=== PATIENT | female | born 1955 | race Caucasian/White ===

== ENCOUNTER 2025-03-05 12:18 | Inpatient (IN) | payer MEDICARE, OTHER ==
[~2025-03-05] VITALS: Ht 165.1 cm; Wt 82.1 kg
[2025-03-05] MEDS ORDERED: SERT-440 PO (12:37)
[2025-03-05] MEDS ORDERED: VALS320T16 PO (12:37)
[2025-03-05] MEDS ORDERED: NIFE-35 PO (12:37)
[2025-03-05] MEDS ORDERED: FAMO20TA8 PO (12:37)
[2025-03-05 12:58] LABS: CALCIUM 8.5 mg/dL (8.5-10.1); CARBON DIOXIDE 15 mmol/L (21-32); CHLORIDE 99 mmol/L (98-107); CREATININE 1.6 mg/dL (0.6-1.3); GLUCOSE 124 mg/dL (74-106); POTASSIUM 3.6 mmol/L (3.5-5.1); SODIUM SERUM 131 mmol/L (136-145); UREA NITROGEN, BLOOD 62 mg/dL (7-18)
[2025-03-05 13:03] LABS: BASOPHILS % (AUTO) 0.6 % (0.0-2.0); EOSINOPHILS % (AUTO) 0.1 % (0.0-7.0); LYMPHOCYTES # (AUTO) 0.4 K/uL (0.8-4.8); MEAN CORPUSCULAR HEMOGLOBIN 30.9 uug (24.7-32.8); MONOCYTES # (AUTO) 0.2 K/uL (0.1-1.30); NEUTROPHILS # (AUTO) 2.5 K/uL (1.8-8.9); WHITE BLOOD COUNT (AUTO) 3.1 K/uL (3.8-11.8)
[2025-03-05 13:05] LABS: LYMPHOCYTES % (AUTO) 11.9 % (20.5-51.5); MEAN CORPUSCULAR HGB CONC 34 g/dL (32.3-35.6); MEAN CORPUSCULAR VOLUME 91.1 fL (75.5-95.3); MONOCYTES % (AUTO) 6.8 % (0.0-11.0); NEUTROPHILS % (AUTO) 80.6 % (38.5-71.5); PLATELET COUNT (AUTO) 222 K/uL (179-408); RED CELL DISTRIBUTION WIDTH 16.1 % (12.3-17.7)
[2025-03-05 13:06] LABS: DIFFERENTIAL COMMENT 1; RED BLOOD CELL COUNT(AUTO) 2.19 MIL/uL (3.63-4.92)
[2025-03-05 13:08] LABS: HEMATOCRIT 19.9 % (31.2-41.9); HEMOGLOBIN 6.8 g/dL (10.9-14.3)
[2025-03-05 13:10] LABS: ALANINE AMINOTRANSFERASE 11 U/L (14-59); ALBUMIN 2.8 g/dL (3.4-5.0); ALKALINE PHOSPHATASE 124 U/L (50-136); ASPARTATE AMINOTRANSFERASE 18 U/L (15-37); BILIRUBIN,DIRECT 0.3 mg/dL (0.0-0.2); BILIRUBIN,TOTAL 0.7 mg/dL (0.2-1.0); NT-PRO BNP 445 pg/mL (0-125); TOTAL PROTEIN, SERUM 6.7 g/dL (6.4-8.2)
[2025-03-05 13:17] LABS: LYMPHOCYTES % (MANUAL) 12 % (20-40); MONOCYTES % (MANUAL) 7 % (2-10); NEUTROPHILS % (MANUAL) 81 % (42-75); PLATELET ESTIMATE ADEQUATE
[2025-03-05 13:18] LABS: ANISOCYTOSIS 1+
[2025-03-05] MEDS: IV NORMAL SALINE 1000 ML BAG IV ONE (13:20)
[2025-03-05] MEDS ORDERED: LIDOCAINE/PRILOCAINE 5 GM CREAM.GM. ONE (13:27)
[2025-03-05 13:29] LABS: IRON, SERUM 27 ug/dL (50-175)
[2025-03-05] MEDS ORDERED: LIDOCAINE/PRILOCAINE 5 GM CREAM.GM. TP ONE (13:30)
[2025-03-05] MEDS ORDERED: CEFTRIAXONE /D5W 50ML IVPB **ER PYXIS IV ONE (14:47)
[2025-03-05] MEDS ORDERED: METRONIDAZOLE 500 MG/NS 100ML 100 ML IV ONE (14:48)
[2025-03-05] MEDS: CEFTRIAXONE 1 G in IV DEXTROSE 5% 50 ML IV ONE (14:48)
[2025-03-05] MEDS: METRONIDAZOLE 500 MG/NS 100ML 100 ML IV ONE (14:48)
[2025-03-05 15:24] LABS: *OCCULT BLOOD STOOL NEGATIVE (NEGATIVE)
[2025-03-05 17:17] LABS: *BILIRUBIN,URIN NEGATIVE (NEGATIVE); *CLARITY,URINE CLEAR (CLEAR); *COLOR,URINE YELLOW (YELLOW); *KETONES,URINE TRACE (NEGATIVE); *PROTEIN,URINE 1+ (NEGATIVE); *UROBILINOGEN,URINE 0.2 E.U./dl (NORMAL); LEUKOCYTE ESTERASE ,URINE 1+ (NEGATIVE); NITRITE, URINE POSITIVE (NEGATIVE); PH,URINE 5.5 (5.0-8.0); UGLUCOSE NEGATIVE (NEGATIVE)
[2025-03-05 17:18] LABS: *BLOOD, URINE TRACE (NEGATIVE)
[2025-03-05 17:33] LABS: BACTERIA,URINE MANY /HPF (NONE SEEN); RBC,URINE 0-3 /HPF (0-3); SQUAMOUS EPITHELIAL CELL,UR FEW /HPF (NONE SEEN); WBC,URINE 20-50 /HPF (0-3)
[2025-03-05 19:00] VITALS: BP 126/50; TEMP 98.1; O2SAT 100
[2025-03-05] MEDS ORDERED: ONDANSETRON 4 MG/2 ML VIAL IV PRN (19:00)
[2025-03-05] MEDS ORDERED: ACETAMINOPHEN 325 MG TABLET PO PRN (19:00)
[2025-03-05] MEDS ORDERED: MAGNESIUM HYDROXIDE 30 ML LIQUID UDC PO PRN (19:00)
[2025-03-05] MEDS ORDERED: ATOR40TA PO (19:39)
[2025-03-05] MEDS ORDERED: HYDR-3980 (19:39)
[2025-03-05] MEDS ORDERED: CLON1TAB12 PO (19:39)
[2025-03-05] MEDS: VANCOMYCIN HCL 250 MG CAPSULE PO SCH (22:00)
[2025-03-05 22:57] VITALS: BP 122/53; TEMP 97.7
[2025-03-05] MEDS: IV 1/2NS 1000 ML 1,000 ML IV PRN (23:14)
[2025-03-05 23:15] VITALS: BP 128/65; TEMP 98
[2025-03-05 23:30] VITALS: BP 116/64; TEMP 98.2
[2025-03-06] VITALS (10 sets, daily range): BP systolic 109–131; BP diastolic 41–62; TEMP 97.8–98.6; O2SAT 93–97
[2025-03-06] MEDS: CLONAZEPAM 1 MG TABLET PO ONE (01:15)
[2025-03-06] MEDS: PANTOPRAZOLE SODIUM 40 MG TABLET.DR PO SCH (06:28)
[2025-03-06 07:00] LABS: BASOPHILS % (AUTO) 0.9 % (0.0-2.0); EOSINOPHILS % (AUTO) 1.1 % (0.0-7.0); HEMATOCRIT 27.6 % (31.2-41.9); HEMOGLOBIN 9.2 g/dL (10.9-14.3); LYMPHOCYTES # (AUTO) 0.4 K/uL (0.8-4.8); LYMPHOCYTES % (AUTO) 21.7 % (20.5-51.5); MEAN CORPUSCULAR HEMOGLOBIN 30.4 uug (24.7-32.8); MEAN CORPUSCULAR HGB CONC 33 g/dL (32.3-35.6); MEAN CORPUSCULAR VOLUME 91.5 fL (75.5-95.3); MONOCYTES # (AUTO) 0.1 K/uL (0.1-1.30); MONOCYTES % (AUTO) 7.7 % (0.0-11.0); NEUTROPHILS # (AUTO) 1.1 K/uL (1.8-8.9); NEUTROPHILS % (AUTO) 68.6 % (38.5-71.5); PLATELET COUNT (AUTO) 149 K/uL (179-408); RED BLOOD CELL COUNT(AUTO) 3.02 MIL/uL (3.63-4.92); RED CELL DISTRIBUTION WIDTH 17.1 % (12.3-17.7)
[2025-03-06 07:17] LABS: CALCIUM 7.4 mg/dL (8.5-10.1); CREATININE 0.9 mg/dL (0.6-1.3); MAGNESIUM 1.7 mg/dL (1.8-2.4); PHOSPHOROUS 2.9 mg/dL (2.5-4.9); POTASSIUM 3.3 mmol/L (3.5-5.1)
[2025-03-06 07:18] LABS: DIFFERENTIAL COMMENT 1; WHITE BLOOD COUNT (AUTO) 1.6 K/uL (3.8-11.8)
[2025-03-06 08:21] LABS: THYROID STIMULATING HORMONE 6.374 mIU/mL (0.358-3.740)
[2025-03-06 08:53] LABS: EOSINOPHILS % (MANUAL) 1 % (0-8); LYMPHOCYTES % (MANUAL) 22 % (20-40); MONOCYTES % (MANUAL) 8 % (2-10); NEUTROPHILS % (MANUAL) 69 % (42-75)
[2025-03-06] MEDS: CEFTRIAXONE 1 G in IV DEXTROSE 5% 50 ML IV SCH (09:32)
[2025-03-06] MEDS ORDERED: CLONAZEPAM 1 MG TABLET PO PRN (11:30)
[2025-03-06] MEDS ORDERED: IOHEXOL 350 100 ML INFUS..BTL ONE (11:49)
[2025-03-06] MEDS ORDERED: SWABABLE VALVE TRANSFER SET EA MC ONE (11:49)
[2025-03-06] MEDS ORDERED: IV NORMAL SALINE 250 ML IV ONE (11:49)
[2025-03-06] MEDS: POTASSIUM CHLORIDE 20 MEQ POWDER PACKET PO ONE (13:31)
[2025-03-06] MEDS: MAGNESIUM OXIDE 400 MG TABLET PO ONE (13:31)
[2025-03-06] MEDS: NIFEdipine XL 30 MG TABSR PO SCH (17:00)
[2025-03-06] MEDS: SERTRALINE HCL 100 MG TABLET PO SCH (17:06)
[2025-03-06] MEDS: CLOTRIMAZOLE 1% CREAM 30 GM TUBE TOP SCH (17:07)
[2025-03-06] MEDS ORDERED: LOPE2CAP40 PO (17:19)
[2025-03-06] MEDS ORDERED: CHOL10005 PO (17:19)
[2025-03-06] MEDS ORDERED: IMMU10VI8 IV (17:22)
[2025-03-06 18:51] LABS: *RHEUMATOID FACTOR SCREEN NEGATIVE (NEGATIVE)
[2025-03-06 19:05] LABS: HIV-1 p24 ANTIGEN NON REACTIVE (NONREACTIVE); HIV-1/2 ANTIBODY NON REACTIVE (NONREACTIVE)
[2025-03-06] MEDS: REMEDY ESSENTIAL ZINC PASTE 113 GM TP PRN (21:16)
[2025-03-06] MEDS: ATORVASTATIN 40 MG TABLET PO SCH (21:16)
[2025-03-06] MEDS: CLONAZEPAM 1 MG TABLET PO PRN (21:23)
[2025-03-07] VITALS (10 sets, daily range): BP systolic 122–144; BP diastolic 56–72; TEMP 97.5–98.8; O2SAT 93–98
[2025-03-07 00:54] LABS: THYROID STIMULATING HORMONE 6.11 mIU/mL (0.358-3.740)
[2025-03-07 06:43] LABS: BASOPHILS % (AUTO) 0.9 % (0.0-2.0); DIFFERENTIAL COMMENT 0; EOSINOPHILS % (AUTO) 1.9 % (0.0-7.0); LYMPHOCYTES # (AUTO) 0.6 K/uL (0.8-4.8); MEAN CORPUSCULAR HEMOGLOBIN 30.1 uug (24.7-32.8); MEAN CORPUSCULAR HGB CONC 34 g/dL (32.3-35.6); MEAN CORPUSCULAR VOLUME 89.8 fL (75.5-95.3); MONOCYTES # (AUTO) 0.1 K/uL (0.1-1.30); NEUTROPHILS % (AUTO) 54.2 % (38.5-71.5); PLATELET COUNT (AUTO) 170 K/uL (179-408); RED CELL DISTRIBUTION WIDTH 17.2 % (12.3-17.7)
[2025-03-07 06:57] LABS: HEMATOCRIT 20.2 % (31.2-41.9); HEMOGLOBIN 6.8 g/dL (10.9-14.3); RED BLOOD CELL COUNT(AUTO) 2.25 MIL/uL (3.63-4.92); WHITE BLOOD COUNT (AUTO) 1.8 K/uL (3.8-11.8)
[2025-03-07] MEDS: SERTRALINE HCL 100 MG TABLET PO SCH (08:43)
[2025-03-07] MEDS: VALSARTAN 160 MG TABLET PO SCH (09:00)
[2025-03-07 11:04] LABS: *OCCULT BLOOD STOOL NEGATIVE (NEGATIVE)
[2025-03-07] MEDS ORDERED: IV NORMAL SALINE 250 ML IV ONE (14:35)
[2025-03-07] MEDS ORDERED: SWABABLE VALVE TRANSFER SET EA MC ONE (14:35)
[2025-03-07] MEDS ORDERED: IOHEXOL 350 100 ML INFUS..BTL ONE (14:35)
[2025-03-07] MEDS: SOD FERRIC GLUC COMPLX/SUCROSE 125 MG in IV NORMAL SALINE 100 ML IV SCH (15:16)
[2025-03-07 16:12] LABS: BAND % (MANUAL) 5 % (0-10); EOSINOPHILS % (MANUAL) 2 % (0-8); LYMPHOCYTES % (MANUAL) 39 % (20-40); MONOCYTES % (MANUAL) 9 % (2-10); NEUTROPHILS % (MANUAL) 45 % (42-75)
[2025-03-07 16:13] LABS: ANISOCYTOSIS 1+; PLATELET ESTIMATE DECREASED
[2025-03-08 00:29] VITALS: BP 127/52; TEMP 98.2; O2SAT 96
[2025-03-08 04:07] LABS: HEPATITIS B CORE AB, TOTAL Negative (Negative); HEPATITIS B SURFACE AB, QUAL Reactive (.); HEPATITIS B SURFACE AG Negative (Negative); HEPATITIS C VIRUS ANTIBODY Non Reactive (Non Reactive)
[2025-03-08 04:42] VITALS: BP 141/60; TEMP 98.1; O2SAT 93
[2025-03-08 06:10] LABS: *IMMUNOGLOBULIN G, SERUM 700 mg/dL (586-1602); IMMUNOGLOBULIN A, SERUM 239 mg/dL (87-352); IMMUNOGLOBULIN M, SERUM 233 mg/dL (26-217)
[2025-03-08 07:07] LABS: FOLATE (FOLIC ACID), SERUM <2.0 ng/mL (>3.0)
[2025-03-08 07:09] LABS: EOSINOPHILS % (AUTO) 2.7 % (0.0-7.0); HEMATOCRIT 24.2 % (31.2-41.9); HEMOGLOBIN 8.1 g/dL (10.9-14.3); LYMPHOCYTES # (AUTO) 0.4 K/uL (0.8-4.8); LYMPHOCYTES % (AUTO) 27.3 % (20.5-51.5); MEAN CORPUSCULAR HGB CONC 34 g/dL (32.3-35.6); MEAN CORPUSCULAR VOLUME 89.4 fL (75.5-95.3); MONOCYTES # (AUTO) 0.1 K/uL (0.1-1.30); MONOCYTES % (AUTO) 7.7 % (0.0-11.0); NEUTROPHILS # (AUTO) 0.9 K/uL (1.8-8.9); NEUTROPHILS % (AUTO) 61.3 % (38.5-71.5); PLATELET COUNT (AUTO) 158 K/uL (179-408); RED BLOOD CELL COUNT(AUTO) 2.71 MIL/uL (3.63-4.92); RED CELL DISTRIBUTION WIDTH 16.8 % (12.3-17.7)
[2025-03-08 07:25] LABS: CALCIUM 7.8 mg/dL (8.5-10.1); CREATININE 0.8 mg/dL (0.6-1.3); POTASSIUM 3.3 mmol/L (3.5-5.1)
[2025-03-08 07:30] LABS: ALANINE AMINOTRANSFERASE < 6 U/L (14-59); ALBUMIN 2.2 g/dL (3.4-5.0); ALKALINE PHOSPHATASE 102 U/L (50-136); ASPARTATE AMINOTRANSFERASE 19 U/L (15-37); BILIRUBIN,DIRECT 0.2 mg/dL (0.0-0.2); BILIRUBIN,TOTAL 0.5 mg/dL (0.2-1.0); TOTAL PROTEIN, SERUM 5.5 g/dL (6.4-8.2)
[2025-03-08 07:37] VITALS: BP 110/51; TEMP 97.7; O2SAT 95
[2025-03-08 07:40] LABS: DIFFERENTIAL COMMENT 1; WHITE BLOOD COUNT (AUTO) 1.4 K/uL (3.8-11.8)
[2025-03-08] MEDS: POTASSIUM CHLORIDE 20 MEQ TAB.PRT.SR PO ONE (09:41)
[2025-03-08 11:45] VITALS: BP 117/43; TEMP 98.6; O2SAT 100
[2025-03-08] MEDS: FOLIC ACID 1 MG TABLET PO SCH (13:56)
[2025-03-08 13:59] VITALS: BP 118/66; TEMP 98.1; O2SAT 95
[2025-03-08] MEDS: TBO-FILGRASTIM 480 MCG/0.8 ML SYRINGE SQ SCH (17:15)
[2025-03-08] MEDS ORDERED: FILGRASTIM 480 MCG/1.6 ML VIAL SUBCUT SCH (18:00)
[2025-03-08] MEDS: ACIDOPHILUS/BULGARICUS CHEW TAB PO SCH (20:22)
[2025-03-08 20:49] VITALS: BP 124/59; TEMP 97.2; O2SAT 98
[2025-03-09 00:09] VITALS: BP 119/50; TEMP 98.2; O2SAT 98
[2025-03-09 04:29] VITALS: BP 130/61; TEMP 98.3; O2SAT 97
[2025-03-09 07:34] LABS: BASOPHILS % (AUTO) 0.4 % (0.0-2.0); EOSINOPHILS % (AUTO) 0.5 % (0.0-7.0); HEMATOCRIT 24.1 % (31.2-41.9); HEMOGLOBIN 8.2 g/dL (10.9-14.3); LYMPHOCYTES # (AUTO) 0.5 K/uL (0.8-4.8); LYMPHOCYTES % (AUTO) 10.3 % (20.5-51.5); MEAN CORPUSCULAR HEMOGLOBIN 30.1 uug (24.7-32.8); MEAN CORPUSCULAR HGB CONC 34 g/dL (32.3-35.6); MEAN CORPUSCULAR VOLUME 88.8 fL (75.5-95.3); MONOCYTES # (AUTO) 0.2 K/uL (0.1-1.30); MONOCYTES % (AUTO) 3.3 % (0.0-11.0); NEUTROPHILS # (AUTO) 4.2 K/uL (1.8-8.9); NEUTROPHILS % (AUTO) 85.5 % (38.5-71.5); PLATELET COUNT (AUTO) 147 K/uL (179-408); RED BLOOD CELL COUNT(AUTO) 2.71 MIL/uL (3.63-4.92); RED CELL DISTRIBUTION WIDTH 16.6 % (12.3-17.7)
[2025-03-09 07:37] LABS: DIFFERENTIAL COMMENT 1
[2025-03-09 07:40] LABS: CALCIUM 7.5 mg/dL (8.5-10.1); CREATININE 0.8 mg/dL (0.6-1.3); POTASSIUM 3.4 mmol/L (3.5-5.1)
[2025-03-09 07:56] VITALS: BP 121/60; TEMP 98.3; O2SAT 97
[2025-03-09] MEDS: POTASSIUM CHLORIDE 20 MEQ TAB.PRT.SR PO ONE (09:47)
[2025-03-09 11:39] VITALS: BP 123/61; TEMP 98.2; O2SAT 97
[2025-03-09 14:07] LABS: *ANTI-SCLERODERMA-70 AB <0.2 AI (0.0-0.9); *RNP ANTIBODIES <0.2 AI (0.0-0.9); *SJOGREN'S ANTI-SS-A <0.2 AI (0.0-0.9); *SJOGREN'S ANTI-SS-B <0.2 AI (0.0-0.9); *SMITH ANTIBODIES <0.2 AI (0.0-0.9); ANTI-DNA(DS) AB, QN <1 IU/mL (0-9); ANTI-NUCLEAR AB DIRECT Negative (Negative)
[2025-03-09 16:49] VITALS: BP 121/52; TEMP 98.7; O2SAT 96
[2025-03-09] MEDS: ENSURE ENLIVE (VAN) 240 ML LIQUID PO SCH (17:03)
[2025-03-09 19:47] VITALS: BP 137/54; TEMP 99.1; O2SAT 96
[2025-03-10 00:09] VITALS: BP 118/49; TEMP 97.7; O2SAT 98
[2025-03-10 04:35] VITALS: BP 139/59; TEMP 97.8; O2SAT 95
[2025-03-10] MEDS ORDERED: VANCOMYCIN HCL 250 MG CAPSULE PO SCH ×4 (06:00→08:00)
[2025-03-10 07:19] LABS: BASOPHILS % (AUTO) 0.5 % (0.0-2.0); EOSINOPHILS % (AUTO) 0.6 % (0.0-7.0); HEMATOCRIT 22.2 % (31.2-41.9); HEMOGLOBIN 7.5 g/dL (10.9-14.3); LYMPHOCYTES # (AUTO) 0.5 K/uL (0.8-4.8); LYMPHOCYTES % (AUTO) 8.7 % (20.5-51.5); MEAN CORPUSCULAR HEMOGLOBIN 30.6 uug (24.7-32.8); MEAN CORPUSCULAR HGB CONC 34 g/dL (32.3-35.6); MEAN CORPUSCULAR VOLUME 89.9 fL (75.5-95.3); MONOCYTES # (AUTO) 0.2 K/uL (0.1-1.30); NEUTROPHILS # (AUTO) 4.8 K/uL (1.8-8.9); NEUTROPHILS % (AUTO) 86.2 % (38.5-71.5); PLATELET COUNT (AUTO) 132 K/uL (179-408); RED CELL DISTRIBUTION WIDTH 16.4 % (12.3-17.7); WHITE BLOOD COUNT (AUTO) 5.6 K/uL (3.8-11.8)
[2025-03-10 07:27] LABS: CREATININE 0.8 mg/dL (0.6-1.3); POTASSIUM 3.8 mmol/L (3.5-5.1)
[2025-03-10 07:43] VITALS: BP 135/67; TEMP 97.7; O2SAT 97
[2025-03-10 07:43] LABS: DIFFERENTIAL COMMENT 1; RED BLOOD CELL COUNT(AUTO) 2.47 MIL/uL (3.63-4.92)
[2025-03-10] MEDS: VANCOMYCIN HCL 250 MG CAPSULE PO SCH (08:14)
[2025-03-10 11:54] VITALS: BP 130/53; TEMP 97.6; O2SAT 99
[2025-03-10 16:34] VITALS: BP 130/59; TEMP 97.7; O2SAT 98
[2025-03-10] MEDS: HYDROCODONE/APAP 5-325MG TABLET PO PRN (16:37)
[2025-03-10 19:00] VITALS: BP 121/55; TEMP 98.4; O2SAT 97
[2025-03-10] MEDS: AMOXICILLIN-CLAVUL 875-125MG TABLET PO SCH (22:25)
[2025-03-11 02:09] LABS: A/G RATIO 0.8 (0.7-1.7); ALBUMIN 2.4 g/dL (2.9-4.4); ALPHA-1-GLOBULIN 0.4 g/dL (0.0-0.4); ALPHA-2-GLOBULIN 0.7 g/dL (0.4-1.0); BETA GLOBULIN 0.9 g/dL (0.7-1.3); GAMMA GLOBULIN 0.9 g/dL (0.4-1.8); GLOBULIN, TOTAL 2.9 g/dL (2.2-3.9); M-SPIKE Not Observed g/dL (Not Observed); PROTEIN, TOTAL 5.3 g/dL (6.0-8.5)
[2025-03-11 06:13] VITALS: BP 124/52; TEMP 98.3; O2SAT 96
[2025-03-11 11:48] VITALS: BP 125/54; TEMP 98.1; O2SAT 96
[2025-03-11] MEDS: ACIDOPHILUS/BULGARICUS CHEW TAB PO SCH ×2 (12:21→16:32)
[2025-03-11 16:23] VITALS: BP 137/55; TEMP 97.8; O2SAT 99
[2025-03-11 20:22] VITALS: BP 118/54; TEMP 98.8; O2SAT 96
[2025-03-12 04:59] VITALS: BP 115/54; TEMP 98; O2SAT 96
[2025-03-12 07:20] LABS: BASOPHILS % (AUTO) 0.4 % (0.0-2.0); EOSINOPHILS # (AUTO) 0.1 K/uL (0.0-0.7); HEMATOCRIT 22.3 % (31.2-41.9); HEMOGLOBIN 7.5 g/dL (10.9-14.3); LYMPHOCYTES # (AUTO) 0.7 K/uL (0.8-4.8); LYMPHOCYTES % (AUTO) 24.6 % (20.5-51.5); MEAN CORPUSCULAR HEMOGLOBIN 30.3 uug (24.7-32.8); MEAN CORPUSCULAR HGB CONC 34 g/dL (32.3-35.6); MEAN CORPUSCULAR VOLUME 90.2 fL (75.5-95.3); MONOCYTES # (AUTO) 0.2 K/uL (0.1-1.30); MONOCYTES % (AUTO) 6.2 % (0.0-11.0); NEUTROPHILS # (AUTO) 1.8 K/uL (1.8-8.9); NEUTROPHILS % (AUTO) 66.8 % (38.5-71.5); PLATELET COUNT (AUTO) 119 K/uL (179-408); RED CELL DISTRIBUTION WIDTH 17.6 % (12.3-17.7); WHITE BLOOD COUNT (AUTO) 2.7 K/uL (3.8-11.8)
[2025-03-12 07:29] LABS: CALCIUM 7.9 mg/dL (8.5-10.1); CREATININE 0.7 mg/dL (0.6-1.3); POTASSIUM 3.7 mmol/L (3.5-5.1)
[2025-03-12 07:34] LABS: RED BLOOD CELL COUNT(AUTO) 2.47 MIL/uL (3.63-4.92)
[2025-03-12 07:35] LABS: DIFFERENTIAL COMMENT 1
[2025-03-12 08:31] LABS: LYMPHOCYTES % (MANUAL) 0 % (20-40); NEUTROPHILS % (MANUAL) 0 % (42-75)
[2025-03-12 12:00] VITALS: TEMP 98.2
[2025-03-12 19:00] VITALS: BP 111/50; TEMP 98; O2SAT 97
[2025-03-12] MEDS: VANCOMYCIN HCL 250 MG CAPSULE PO SCH (20:53)
[2025-03-12] MEDS: ENSURE ENLIVE (VAN) 240 ML LIQUID PO SCH (21:07)
[2025-03-13 05:00] VITALS: BP 113/53; TEMP 98.2; O2SAT 97
[2025-03-13 08:56] LABS: BASOPHILS % (AUTO) 0.6 % (0.0-2.0); DIFFERENTIAL COMMENT 0; EOSINOPHILS % (AUTO) 1.8 % (0.0-7.0); HEMATOCRIT 22.7 % (31.2-41.9); HEMOGLOBIN 7.5 g/dL (10.9-14.3); LYMPHOCYTES # (AUTO) 0.8 K/uL (0.8-4.8); LYMPHOCYTES % (AUTO) 39.6 % (20.5-51.5); MEAN CORPUSCULAR HEMOGLOBIN 30.4 uug (24.7-32.8); MEAN CORPUSCULAR HGB CONC 33 g/dL (32.3-35.6); MEAN CORPUSCULAR VOLUME 92.2 fL (75.5-95.3); MONOCYTES # (AUTO) 0.2 K/uL (0.1-1.30); MONOCYTES % (AUTO) 9.8 % (0.0-11.0); NEUTROPHILS % (AUTO) 48.2 % (38.5-71.5); PLATELET COUNT (AUTO) 113 K/uL (179-408); RED CELL DISTRIBUTION WIDTH 17.4 % (12.3-17.7)
[2025-03-13 08:57] LABS: CALCIUM 8.4 mg/dL (8.5-10.1); CREATININE 0.8 mg/dL (0.6-1.3); POTASSIUM 3.8 mmol/L (3.5-5.1)
[2025-03-13 08:59] LABS: RED BLOOD CELL COUNT(AUTO) 2.47 MIL/uL (3.63-4.92)
[2025-03-13 09:48] LABS: IRON, SERUM 48 ug/dL (50-175)
[2025-03-13 10:02] LABS: FERRITIN 828 ng/mL (8-252)
[2025-03-13 11:34] VITALS: BP 125/55; TEMP 98.1; O2SAT 98
[2025-03-13] MEDS ORDERED: ALBUTEROL SULFATE 1.25 MG/3 ML NEBU NEB PRN (12:00)
[2025-03-13] MEDS ORDERED: IPRATROPIUM BROMIDE 0.5 MG/2.5 ML NEBU NEB PRN (12:00)
[2025-03-13 15:45] VITALS: BP 123/67; TEMP 98.7; O2SAT 96
[2025-03-13 19:47] VITALS: BP 113/60; TEMP 98.1; O2SAT 95
[2025-03-14 05:10] VITALS: BP 113/55; TEMP 98.1; O2SAT 96
[2025-03-14 06:22] LABS: EOSINOPHILS % (AUTO) 2.1 % (0.0-7.0); HEMATOCRIT 22.3 % (31.2-41.9); LYMPHOCYTES # (AUTO) 0.7 K/uL (0.8-4.8); LYMPHOCYTES % (AUTO) 44.5 % (20.5-51.5); MEAN CORPUSCULAR HEMOGLOBIN 30.7 uug (24.7-32.8); MEAN CORPUSCULAR HGB CONC 33 g/dL (32.3-35.6); MEAN CORPUSCULAR VOLUME 92.7 fL (75.5-95.3); MONOCYTES # (AUTO) 0.2 K/uL (0.1-1.30); MONOCYTES % (AUTO) 15.9 % (0.0-11.0); NEUTROPHILS # (AUTO) 0.5 K/uL (1.8-8.9); NEUTROPHILS % (AUTO) 36.5 % (38.5-71.5); PLATELET COUNT (AUTO) 118 K/uL (179-408); RED CELL DISTRIBUTION WIDTH 17.9 % (12.3-17.7)
[2025-03-14 06:35] LABS: CALCIUM 7.8 mg/dL (8.5-10.1); CREATININE 0.7 mg/dL (0.6-1.3); POTASSIUM 3.5 mmol/L (3.5-5.1)
[2025-03-14 06:48] LABS: DIFFERENTIAL COMMENT 1; HEMOGLOBIN 7.4 g/dL (10.9-14.3); WHITE BLOOD COUNT (AUTO) 1.5 K/uL (3.8-11.8)
[2025-03-14] MEDS ORDERED: FILGRASTIM 480 MCG/1.6 ML VIAL SUBCUT SCH (10:00)
[2025-03-14] MEDS: TBO-FILGRASTIM 480 MCG/0.8 ML SYRINGE SQ SCH (10:54)
[2025-03-14 11:10] VITALS: BP 108/52; TEMP 98.1; O2SAT 98
[2025-03-14 12:57] LABS: LYMPHOCYTES % (MANUAL) 0 % (20-40); NEUTROPHILS % (MANUAL) 0 % (42-75)
[2025-03-14] MEDS: SUCRALFATE 1 G TABLET PO SCH (13:48)
[2025-03-14] MEDS: ALTEPLASE 2 MG VIAL XX ONE (14:42)
[2025-03-14 15:40] VITALS: BP 112/49; TEMP 98; O2SAT 96
[2025-03-14 19:00] VITALS: BP 108/47; TEMP 98.2; O2SAT 97
[2025-03-15 06:00] VITALS: BP 106/41; TEMP 98.2; O2SAT 95
[2025-03-15 06:58] LABS: CREATININE 0.5 mg/dL (0.6-1.3); PHOSPHOROUS 1.5 mg/dL (2.5-4.9); POTASSIUM 2.8 mmol/L (3.5-5.1)
[2025-03-15 07:05] LABS: BASOPHILS # (AUTO) 0.1 K/UL (0.0-0.2); BASOPHILS % (AUTO) 0.9 % (0.0-2.0); DIFFERENTIAL COMMENT 0; EOSINOPHILS # (AUTO) 0.1 K/uL (0.0-0.7); EOSINOPHILS % (AUTO) 0.9 % (0.0-7.0); HEMATOCRIT 21.5 % (31.2-41.9); LYMPHOCYTES # (AUTO) 1.1 K/uL (0.8-4.8); LYMPHOCYTES % (AUTO) 15.7 % (20.5-51.5); MEAN CORPUSCULAR HEMOGLOBIN 30.8 uug (24.7-32.8); MEAN CORPUSCULAR HGB CONC 33 g/dL (32.3-35.6); MEAN CORPUSCULAR VOLUME 93.6 fL (75.5-95.3); MONOCYTES # (AUTO) 0.3 K/uL (0.1-1.30); MONOCYTES % (AUTO) 3.9 % (0.0-11.0); NEUTROPHILS # (AUTO) 5.7 K/uL (1.8-8.9); NEUTROPHILS % (AUTO) 78.6 % (38.5-71.5); PLATELET COUNT (AUTO) 123 K/uL (179-408); RED CELL DISTRIBUTION WIDTH 19.5 % (12.3-17.7); WHITE BLOOD COUNT (AUTO) 7.2 K/uL (3.8-11.8)
[2025-03-15 07:08] LABS: HEMOGLOBIN 7.1 g/dL (10.9-14.3)
[2025-03-15 07:44] LABS: FIBRINOGEN ACTIVITY 444 mg/dL (210-360)
[2025-03-15] MEDS: POTASSIUM CHLORIDE 20 MEQ TAB.PRT.SR PO SCH (09:12)
[2025-03-15 09:43] VITALS: BP 119/54; TEMP 98.1; O2SAT 95
[2025-03-15 11:10] VITALS: BP 115/52; TEMP 97.8; O2SAT 97
[2025-03-15] MEDS: SUCRALFATE 1 G/10 ML LIQUID UDC PO SCH (11:52)
[2025-03-15] MEDS: NITROFURANTOIN/NITROFURAN MAC 100 MG CAPSULE PO SCH (12:00)
[2025-03-15] MEDS: MAGNESIUM SULFATE/D5W 100 ML IV SCH (12:02)
[2025-03-15] MEDS: NEUTRA PHOS PACKET PO ONE (12:03)
[2025-03-15] MEDS: VANCOMYCIN FOR GT/NG USE PO SCH (12:34)
[2025-03-15] MEDS: POTASSIUM CHLORIDE 50 ML IV SCH (13:34)
[2025-03-15 16:17] VITALS: BP 110/45; TEMP 98.2; O2SAT 98
[2025-03-15 16:59] LABS: HEMOGLOBIN 7.7 g/dL (10.9-14.3)
[2025-03-15 19:10] VITALS: BP 127/48; TEMP 98; O2SAT 96
[2025-03-16 06:34] VITALS: BP 102/39; TEMP 98; O2SAT 95
[2025-03-16 07:00] LABS: CALCIUM 8.6 mg/dL (8.5-10.1); CREATININE 0.7 mg/dL (0.6-1.3); MAGNESIUM 2.6 mg/dL (1.8-2.4); PHOSPHOROUS 1.8 mg/dL (2.5-4.9); POTASSIUM 4.4 mmol/L (3.5-5.1)
[2025-03-16 07:02] LABS: IRON, SERUM 60 ug/dL (50-175)
[2025-03-16 07:12] LABS: BASOPHILS % (AUTO) 0.5 % (0.0-2.0); EOSINOPHILS % (AUTO) 0.8 % (0.0-7.0); HEMATOCRIT 23.3 % (31.2-41.9); HEMOGLOBIN 7.8 g/dL (10.9-14.3); LYMPHOCYTES # (AUTO) 0.7 K/uL (0.8-4.8); MEAN CORPUSCULAR HEMOGLOBIN 30.9 uug (24.7-32.8); MEAN CORPUSCULAR HGB CONC 33 g/dL (32.3-35.6); MONOCYTES # (AUTO) 0.3 K/uL (0.1-1.30); MONOCYTES % (AUTO) 4.2 % (0.0-11.0); NEUTROPHILS % (AUTO) 82.5 % (38.5-71.5); PLATELET COUNT (AUTO) 135 K/uL (179-408); RED BLOOD CELL COUNT(AUTO) 2.51 MIL/uL (3.63-4.92); RED CELL DISTRIBUTION WIDTH 20.1 % (12.3-17.7)
[2025-03-16 07:14] LABS: FERRITIN 885 ng/mL (8-252)
[2025-03-16 07:24] LABS: DIFFERENTIAL COMMENT 1
[2025-03-16 11:52] VITALS: BP 104/44; TEMP 98; O2SAT 96
[2025-03-16] MEDS ORDERED: VANCOMYCIN FOR GT/NG USE PO SCH (12:30)
[2025-03-16] MEDS: NEUTRA PHOS PACKET PO ONE (12:43)
[2025-03-16] MEDS: ENOXAPARIN SODIUM 40 MG/0.4 ML DISP.SYRIN SQ SCH (12:44)
[2025-03-16] MEDS: POTASSIUM CHLORIDE 20 MEQ in IV D5 1/2 NS 1000 ML 1,000 ML IV PRN (13:13)
[2025-03-16] MEDS: VANCOMYCIN HCL 250 MG CAPSULE PO SCH (13:14)
[2025-03-16] MEDS: METRONIDAZOLE 500 MG/NS 100ML 500 MG in PREMIXED 1 EACH IV SCH (13:15)
[2025-03-16 16:08] VITALS: BP 102/46; TEMP 98.3; O2SAT 95
[2025-03-16] MEDS: VANCOMYCIN FOR GT/NG USE PO SCH (17:10)
[2025-03-16 19:10] VITALS: BP 126/46; TEMP 98.3; O2SAT 95
[2025-03-17 05:33] VITALS: BP 124/57; TEMP 97.8; O2SAT 97
[2025-03-17 07:01] LABS: BASOPHILS % (AUTO) 1.1 % (0.0-2.0); EOSINOPHILS % (AUTO) 1.3 % (0.0-7.0); HEMATOCRIT 24.3 % (31.2-41.9); LYMPHOCYTES # (AUTO) 0.6 K/uL (0.8-4.8); LYMPHOCYTES % (AUTO) 19.3 % (20.5-51.5); MEAN CORPUSCULAR HEMOGLOBIN 31.1 uug (24.7-32.8); MEAN CORPUSCULAR HGB CONC 33 g/dL (32.3-35.6); MEAN CORPUSCULAR VOLUME 94.8 fL (75.5-95.3); MONOCYTES # (AUTO) 0.2 K/uL (0.1-1.30); MONOCYTES % (AUTO) 7.2 % (0.0-11.0); NEUTROPHILS # (AUTO) 2.3 K/uL (1.8-8.9); NEUTROPHILS % (AUTO) 71.1 % (38.5-71.5); PLATELET COUNT (AUTO) 135 K/uL (179-408); RED BLOOD CELL COUNT(AUTO) 2.56 MIL/uL (3.63-4.92); RED CELL DISTRIBUTION WIDTH 20.4 % (12.3-17.7); WHITE BLOOD COUNT (AUTO) 3.3 K/uL (3.8-11.8)
[2025-03-17 07:02] LABS: DIFFERENTIAL COMMENT 1
[2025-03-17 07:18] LABS: CALCIUM 8.3 mg/dL (8.5-10.1); CREATININE 0.7 mg/dL (0.6-1.3); MAGNESIUM 2.5 mg/dL (1.8-2.4); PHOSPHOROUS 3.2 mg/dL (2.5-4.9)
[2025-03-17 07:24] LABS: POTASSIUM 4.7 mmol/L (3.5-5.1)
[2025-03-17 12:00] VITALS: BP 137/56; TEMP 97.9; O2SAT 96
[2025-03-17 16:30] VITALS: BP 113/49; TEMP 97.4; O2SAT 99
[2025-03-17 19:00] VITALS: BP 135/56; TEMP 98.2; O2SAT 94
[2025-03-18 05:59] VITALS: BP 107/59; TEMP 98; O2SAT 94
[2025-03-18 07:18] LABS: BASOPHILS % (AUTO) 0.9 % (0.0-2.0); EOSINOPHILS % (AUTO) 1.5 % (0.0-7.0); HEMATOCRIT 25.4 % (31.2-41.9); HEMOGLOBIN 8.3 g/dL (10.9-14.3); LYMPHOCYTES # (AUTO) 0.6 K/uL (0.8-4.8); LYMPHOCYTES % (AUTO) 28.5 % (20.5-51.5); MEAN CORPUSCULAR HEMOGLOBIN 31.5 uug (24.7-32.8); MEAN CORPUSCULAR HGB CONC 33 g/dL (32.3-35.6); MEAN CORPUSCULAR VOLUME 96.9 fL (75.5-95.3); MONOCYTES # (AUTO) 0.2 K/uL (0.1-1.30); MONOCYTES % (AUTO) 10.5 % (0.0-11.0); NEUTROPHILS # (AUTO) 1.2 K/uL (1.8-8.9); NEUTROPHILS % (AUTO) 58.6 % (38.5-71.5); PLATELET COUNT (AUTO) 138 K/uL (179-408); RED BLOOD CELL COUNT(AUTO) 2.62 MIL/uL (3.63-4.92); RED CELL DISTRIBUTION WIDTH 20.7 % (12.3-17.7); WHITE BLOOD COUNT (AUTO) 2.1 K/uL (3.8-11.8)
[2025-03-18 07:27] LABS: DIFFERENTIAL COMMENT 1
[2025-03-18 07:30] LABS: CALCIUM 8.6 mg/dL (8.5-10.1); CREATININE 0.8 mg/dL (0.6-1.3); MAGNESIUM 2.3 mg/dL (1.8-2.4); POTASSIUM 4.9 mmol/L (3.5-5.1)
[2025-03-18] MEDS: NITROFURANTOIN MACROCRYSTAL 100 MG CAPSULE PO SCH (09:31)
[2025-03-18 11:55] VITALS: BP 132/60; TEMP 98; O2SAT 94
[2025-03-18] MEDS: FAMOTIDINE 20 MG TABLET PO SCH (13:10)
[2025-03-18] MEDS: METRONIDAZOLE 500 MG TABLET PO SCH (13:10)
[2025-03-18 16:16] VITALS: BP 127/58; TEMP 98.5; O2SAT 98
[2025-03-18 19:15] VITALS: BP 132/46; TEMP 98.5; O2SAT 95
[2025-03-19 07:18] LABS: DIFFERENTIAL COMMENT 0; EOSINOPHILS % (AUTO) 1.9 % (0.0-7.0); HEMATOCRIT 26.9 % (31.2-41.9); HEMOGLOBIN 8.7 g/dL (10.9-14.3); LYMPHOCYTES # (AUTO) 0.6 K/uL (0.8-4.8); LYMPHOCYTES % (AUTO) 35.8 % (20.5-51.5); MEAN CORPUSCULAR HEMOGLOBIN 31.5 uug (24.7-32.8); MEAN CORPUSCULAR HGB CONC 32 g/dL (32.3-35.6); MEAN CORPUSCULAR VOLUME 97.1 fL (75.5-95.3); MONOCYTES # (AUTO) 0.2 K/uL (0.1-1.30); MONOCYTES % (AUTO) 9.7 % (0.0-11.0); NEUTROPHILS # (AUTO) 0.9 K/uL (1.8-8.9); NEUTROPHILS % (AUTO) 51.6 % (38.5-71.5); PLATELET COUNT (AUTO) 146 K/uL (179-408); RED BLOOD CELL COUNT(AUTO) 2.77 MIL/uL (3.63-4.92); RED CELL DISTRIBUTION WIDTH 20.4 % (12.3-17.7)
[2025-03-19 07:36] LABS: WHITE BLOOD COUNT (AUTO) 1.8 K/uL (3.8-11.8)
[2025-03-19 11:30] VITALS: BP 118/49; TEMP 98.2; O2SAT 97
[2025-03-19 15:44] VITALS: BP 129/58; TEMP 98.6; O2SAT 96
[2025-03-19 19:10] VITALS: BP 130/50; TEMP 97.7; O2SAT 97
[2025-03-20 04:10] VITALS: BP 128/59; TEMP 98; O2SAT 95
[2025-03-20 07:50] LABS: BASOPHILS % (AUTO) 1.2 % (0.0-2.0); EOSINOPHILS % (AUTO) 1.7 % (0.0-7.0); HEMATOCRIT 27.7 % (31.2-41.9); LYMPHOCYTES # (AUTO) 0.6 K/uL (0.8-4.8); LYMPHOCYTES % (AUTO) 32.9 % (20.5-51.5); MEAN CORPUSCULAR HEMOGLOBIN 31.2 uug (24.7-32.8); MEAN CORPUSCULAR HGB CONC 33 g/dL (32.3-35.6); MEAN CORPUSCULAR VOLUME 95.8 fL (75.5-95.3); MONOCYTES # (AUTO) 0.3 K/uL (0.1-1.30); MONOCYTES % (AUTO) 14.3 % (0.0-11.0); NEUTROPHILS % (AUTO) 49.9 % (38.5-71.5); PLATELET COUNT (AUTO) 159 K/uL (179-408); RED BLOOD CELL COUNT(AUTO) 2.89 MIL/uL (3.63-4.92); RED CELL DISTRIBUTION WIDTH 19.9 % (12.3-17.7)
[2025-03-20 07:54] LABS: DIFFERENTIAL COMMENT 1; WHITE BLOOD COUNT (AUTO) 1.9 K/uL (3.8-11.8)
[2025-03-20 07:57] LABS: CALCIUM 9.4 mg/dL (8.5-10.1); CREATININE 0.9 mg/dL (0.6-1.3); MAGNESIUM 2.2 mg/dL (1.8-2.4); PHOSPHOROUS 3.8 mg/dL (2.5-4.9); POTASSIUM 4.5 mmol/L (3.5-5.1)
[2025-03-20 11:30] VITALS: BP 116/59; TEMP 98.1; O2SAT 96
[2025-03-20 12:42] LABS: BASOPHILS % (MANUAL) 1 % (0-2); EOSINOPHILS % (MANUAL) 2 % (0-8); LYMPHOCYTES % (MANUAL) 33 % (20-40); MONOCYTES % (MANUAL) 14 % (2-10); NEUTROPHILS % (MANUAL) 50 % (42-75); PLATELET ESTIMATE DECREASED
[2025-03-20 16:00] VITALS: BP 106/40; TEMP 98.9; O2SAT 98
[2025-03-20 19:15] VITALS: BP 115/68; TEMP 97.5; O2SAT 97
[2025-03-21 04:30] VITALS: BP 106/46; TEMP 97.9; O2SAT 95
[2025-03-21 07:05] LABS: BASOPHILS % (AUTO) 1.1 % (0.0-2.0); EOSINOPHILS % (AUTO) 1.9 % (0.0-7.0); HEMATOCRIT 28.5 % (31.2-41.9); HEMOGLOBIN 9.3 g/dL (10.9-14.3); LYMPHOCYTES % (AUTO) 45.3 % (20.5-51.5); MEAN CORPUSCULAR HEMOGLOBIN 31.9 uug (24.7-32.8); MEAN CORPUSCULAR HGB CONC 33 g/dL (32.3-35.6); MEAN CORPUSCULAR VOLUME 97.5 fL (75.5-95.3); MONOCYTES # (AUTO) 0.3 K/uL (0.1-1.30); MONOCYTES % (AUTO) 14.1 % (0.0-11.0); NEUTROPHILS # (AUTO) 0.8 K/uL (1.8-8.9); NEUTROPHILS % (AUTO) 37.6 % (38.5-71.5); PLATELET COUNT (AUTO) 170 K/uL (179-408); RED BLOOD CELL COUNT(AUTO) 2.92 MIL/uL (3.63-4.92); WHITE BLOOD COUNT (AUTO) 2.1 K/uL (3.8-11.8)
[2025-03-21 07:18] LABS: DIFFERENTIAL COMMENT 1
[2025-03-21 11:30] VITALS: BP 116/45; TEMP 97.9; O2SAT 98
[2025-03-21 15:32] VITALS: BP 103/50; TEMP 98.1; O2SAT 97
[2025-03-21 15:38] LABS: BAND % (MANUAL) 4 % (0-10); EOSINOPHILS % (MANUAL) 1 % (0-8); LYMPHOCYTES % (MANUAL) 42 % (20-40); MONOCYTES % (MANUAL) 14 % (2-10); NEUTROPHILS % (MANUAL) 39 % (42-75); PLATELET ESTIMATE DECREASED
[2025-03-21 15:39] LABS: ANISOCYTOSIS 2+
[2025-03-21 19:16] VITALS: BP 108/52; TEMP 97.9; O2SAT 96
[2025-03-22 05:40] VITALS: BP 106/42; TEMP 98.3; O2SAT 96
[2025-03-22] MEDS ORDERED: FOLI1TAB94 PO (11:03)
[2025-03-22] MEDS ORDERED: VANC500V PO (11:03)
[2025-03-22] MEDS ORDERED: METR500T PO (11:03)
[2025-03-22] MEDS ORDERED: ACID1TAB4 PO (11:03)
[2025-03-22] MEDS ORDERED: ENOX40DI SQ (11:10)
[2025-03-22 11:40] VITALS: BP 112/58; TEMP 98.1; O2SAT 96
[2025-03-22 15:30] VITALS: BP 122/53; TEMP 97.7; O2SAT 95
== END 2025-03-22 17:45 | DRG 371 ==
LOC: ER 12:18 → TELE3 18:31 → MEDSURG3 03-09 10:11 → TELE3 03-09 10:25 → MEDSURG3 03-10 12:29
PROC: 30233N1 Transfusion of Nonautologous Red Blood Cells into Peripheral Vein, Percutaneous Approach (ICD-10-PCS; 2025-03-05)
PROC: 05HB33Z Insertion of Infusion Device into Right Basilic Vein, Percutaneous Approach (ICD-10-PCS; principal; 2025-03-06)
DX: A04.72 Enterocolitis due to Clostridium difficile, not specified as recurrent (principal); N17.0 Acute kidney failure with tubular necrosis; D61.818 Other pancytopenia; N39.0 Urinary tract infection, site not specified; E87.1 Hypo-osmolality and hyponatremia; D68.59 Other primary thrombophilia; D80.1 Nonfamilial hypogammaglobulinemia; G93.40 Encephalopathy, unspecified; E86.0 Dehydration; B96.1 Klebsiella pneumoniae [K. pneumoniae] as the cause of diseases classified elsewhere; D47.2 Monoclonal gammopathy; E66.9 Obesity, unspecified; Z71.3 Dietary counseling and surveillance; Z68.30 Body mass index [BMI] 30.0-30.9, adult; G25.81 Restless legs syndrome; E87.6 Hypokalemia; E03.9 Hypothyroidism, unspecified; Z53.20 Procedure and treatment not carried out because of patient's decision for unspecified reasons; Z86.711 Personal history of pulmonary embolism; Z88.5 Allergy status to narcotic agent; Z90.49 Acquired absence of other specified parts of digestive tract; K57.30 Diverticulosis of large intestine without perforation or abscess without bleeding; I10 Essential (primary) hypertension; R16.1 Splenomegaly, not elsewhere classified; Z96.641 Presence of right artificial hip joint; E86.1 Hypovolemia
CPT/HCPCS: 36415; 70030-TC; 71045; 71275; 78580; 82378; 82746; 82784; 83550; 83605; 83735; 84100; 84155; 84156; 84165; 84443; 84484; 85018; 85025; 85730; 86038; 86334; 86430; 86704; 86706; 86803; 86850; 86900; 86901; 86920; 87040; 87077; 87086; 87340; 87806; 88185; 93005; 93307; A4606; A4663; A6213; A9540; C1758; G0378; J0696; J1442; J1650; J2916; J2997; J3370; J3475; J3480; J3490; J7040; J8499; P9016; Q9967